=== PATIENT | male | born 1990 | race Caucasian/White ===

== ENCOUNTER 2019-12-12 14:59 | Emergency (ER) | payer MEDICAID ==
[~2019-12-12] VITALS: Ht 175.3 cm; Wt 77.1 kg
[2019-12-12 16:01] VITALS: BP 139/94
[2019-12-12] MEDS ORDERED: LIDOCAINE 1% HCL (LOCAL ANESTH.) INJ 20ML MDV IJ ONE (16:30)
[2019-12-12] MEDS ORDERED: traMADol HCL 50 MG TAB PO ONE (16:30)
[2019-12-12] MEDS ORDERED: BACITRACIN TOP OINT 1 UD PKG TOP ONE (16:30)
== END 2019-12-12 17:32 | disposition home or self-care (01) ==
LOC: ER 14:59
DX: S81.811A Laceration without foreign body, right lower leg, initial encounter (principal); F17.210 Nicotine dependence, cigarettes, uncomplicated; W26.0XXA Contact with knife, initial encounter; Y93.89 Activity, other specified; Y92.89 Other specified places as the place of occurrence of the external cause; Y99.8 Other external cause status
CPT/HCPCS: 12002; 99283; J2001